=== PATIENT | female | born 1965 | race Caucasian/White ===

== ENCOUNTER 2023-07-22 11:30 | Outpatient (CLI) | payer BC, SELFPAY | END 2023-07-22 11:31 | disposition home or self-care (01) | PROVIDERS: PCP Physician Assistant Medical; Visit Provider Physician Assistant Medical | DX: Z13.220 Encounter for screening for lipoid disorders (principal); Z13.228 Encounter for screening for other metabolic disorders; Z13.1 Encounter for screening for diabetes mellitus; Z13.29 Encounter for screening for other suspected endocrine disorder | CPT/HCPCS: 80053; 80061; 84443 ==

== ENCOUNTER 2024-03-23 08:00 | Outpatient (CLI) | payer BC, SELFPAY | END 2024-03-23 08:01 | disposition home or self-care (01) | PROVIDERS: PCP Physician Assistant Medical; Visit Provider Physician Assistant Medical | DX: E78.5 Hyperlipidemia, unspecified (principal); Z13.29 Encounter for screening for other suspected endocrine disorder | CPT/HCPCS: 80053; 80061; 84443 ==

== ENCOUNTER 2025-02-13 09:31 | Outpatient (CLI) | payer BC, SELFPAY ==
--- NOTE | 2025-02-13 11:02 | P.ANES_ITS ---
Anesthesia Charges Start Date/Time Anesthesia Start Date: 02/13/25 Anesthesia Start Time: 10:10 Stop Date/Time Anesthesia Stop Date: 02/13/25 Anesthesia Stop Time: 10:55 Coding CPT Codes CPT Codes: ANES UPR LWR GI NDSC PX - [id number] ([id number]) P2 - PATIENT W/MILD SYST DISEASE, QK - REHABILITATION CASEWORKER 2-4 CNCRNT ANES PROC
--- NOTE | 2025-02-13 11:02 | W.ANESCHARGE ---
Anesthesia Charges Start Date/Time Anesthesia Start Date: 02/13/25 Anesthesia Start Time: 10:10 Stop Date/Time Anesthesia Stop Date: 02/13/25 Anesthesia Stop Time: 10:55 Coding CPT Codes CPT Codes: ANES UPR LWR GI NDSC PX - [id number] ([id number]) P2 - PATIENT W/MILD SYST DISEASE, QK - WEB MERCHANDISER 2-4 CNCRNT ANES PROC
--- NOTE | 2025-02-13 11:05 | P.ANES_ITS ---
Anesthesia Charges Start Date/Time Anesthesia Start Date: 02/13/25 Anesthesia Start Time: 10:10 Stop Date/Time Anesthesia Stop Date: 02/13/25 Anesthesia Stop Time: 10:55 Coding CPT Codes CPT Codes: ANES UPR LWR GI NDSC PX - [id number] ([id number]) P2 - PATIENT W/MILD SYST DISEASE, QK - COAT TAILOR 2-4 CNCRNT ANES PROC, QX - AMPOULE WASHING MACHINE OPERATOR SVC W/ MD MED DIRECTION
--- NOTE | 2025-02-13 11:05 | W.ANESCHARGE ---
Anesthesia Charges Start Date/Time Anesthesia Start Date: 02/13/25 Anesthesia Start Time: 10:10 Stop Date/Time Anesthesia Stop Date: 02/13/25 Anesthesia Stop Time: 10:55 Coding CPT Codes CPT Codes: ANES UPR LWR GI NDSC PX - [id number] ([id number]) P2 - PATIENT W/MILD SYST DISEASE, QK - BUILD AND DEPLOYMENT ENGINEER 2-4 CNCRNT ANES PROC, QX - FRONT TENDER SVC W/ MD MED DIRECTION
== END 2025-02-13 09:32 | disposition home or self-care (01) ==
LOC: OP CLINIC 09:32
PROVIDERS: PCP Physician Assistant Medical; Visit Provider Internal Medicine
DX: Z12.11 Encounter for screening for malignant neoplasm of colon (principal); D12.5 Benign neoplasm of sigmoid colon; D12.3 Benign neoplasm of transverse colon; D12.0 Benign neoplasm of cecum; K57.30 Diverticulosis of large intestine without perforation or abscess without bleeding; R10.13 Epigastric pain
CPT/HCPCS: 00812; 00813; 43239; 45380; 45385; J2704; J3490